=== PATIENT | female | born 1960 | race Caucasian/White ===

== ENCOUNTER → 2016-08-08 | Outpatient (REF) | payer OTHER ==
[2016-08-08 12:24] LABS: ALBUMIN/GLOBULIN RATIO 1.29 (1.00-1.93); ALKALINE PHOSPHATASE 72 U/L (45-117); ALT/SGPT 17 U/L (12-78); ANION GAP 7 MEQ/L (8-16); AST/SGOT 14 U/L (15-37); BILIRUBIN,TOTAL 0.3 MG/DL (0.2-1.0); BLOOD UREA NITROGEN 16 MG/DL (7-18); CARBON DIOXIDE LEVEL 27 MEQ/L (21-32); CHLORIDE LEVEL 111 MEQ/L (98-107); CHOLESTEROL LEVEL 213 MG/DL (<200); CREATININE FOR GFR 0.83 MG/DL (0.55-1.02); GLOMERULAR FILTRATION RATE > 60.0 (>51); GLUCOSE, FASTING 87 MG/DL (70-105); POTASSIUM SERUM 4.4 MEQ/L (3.5-5.1); SODIUM LEVEL 145 MEQ/L (136-145); TOTAL PROTEIN 7.1 GM/DL (6.4-8.2); TRIGLYCERIDES LEVEL 71 MG/DL (<150)
== END ==
LOC: M SFHCCLAY 07:46
PROVIDERS: ATTEND Family Medicine
DX: I10 Essential (primary) hypertension (principal); E78.2 Mixed hyperlipidemia; R03.0 Elevated blood-pressure reading, without diagnosis of hypertension

== ENCOUNTER → 2017-03-04 | Outpatient (CLI) | payer OTHER ==
[2017-03-04 18:38] LABS: ALBUMIN 3.9 GM/DL (3.2-5.2); ALBUMIN/GLOBULIN RATIO 1.08 (1.00-1.93); ALKALINE PHOSPHATASE 76 U/L (45-117); ALT/SGPT 20 U/L (12-78); ANION GAP 10 MEQ/L (8-16); AST/SGOT 15 U/L (15-37); BILIRUBIN,TOTAL 0.3 MG/DL (0.2-1.0); BLOOD UREA NITROGEN 13 MG/DL (7-18); CALCIUM LEVEL 8.6 MG/DL (8.5-10.1); CARBON DIOXIDE LEVEL 26 MEQ/L (21-32); CHLORIDE LEVEL 108 MEQ/L (98-107); CHOLESTEROL LEVEL 235 MG/DL (<200); CREATININE FOR GFR 0.74 MG/DL (0.55-1.02); GLOMERULAR FILTRATION RATE > 60.0 (>51); GLUCOSE, FASTING 89 MG/DL (70-105); POTASSIUM SERUM 4.6 MEQ/L (3.5-5.1); SODIUM LEVEL 144 MEQ/L (136-145); TOTAL PROTEIN 7.5 GM/DL (6.4-8.2); TRIGLYCERIDES LEVEL 84 MG/DL (<150)
== END ==
LOC: M WUC 08:06
PROVIDERS: ATTEND Family Medicine
DX: I10 Essential (primary) hypertension (principal); E78.2 Mixed hyperlipidemia

== ENCOUNTER → 2017-09-22 | Outpatient (REF) | payer OTHER ==
[2017-09-22 12:23] LABS: ALBUMIN 3.9 GM/DL (3.2-5.2); ALBUMIN/GLOBULIN RATIO 1.11 (1.00-1.93); ALKALINE PHOSPHATASE 69 U/L (45-117); ALT/SGPT 20 U/L (12-78); ANION GAP 4 MEQ/L (8-16); AST/SGOT 13 U/L (7-37); BILIRUBIN,TOTAL 0.5 MG/DL (0.2-1.0); BLOOD UREA NITROGEN 13 MG/DL (7-18); CALCIUM LEVEL 9.4 MG/DL (8.5-10.1); CARBON DIOXIDE LEVEL 30 MEQ/L (21-32); CHLORIDE LEVEL 110 MEQ/L (98-107); CHOLESTEROL LEVEL 220 MG/DL (<200); CHOLESTEROL RISK RATIO 3.666 (<5); CREATININE FOR GFR 0.79 MG/DL (0.55-1.30); GLOMERULAR FILTRATION RATE > 60.0 (>51); GLUCOSE, FASTING 91 MG/DL (70-100); HDL CHOLESTEROL 60 MG/DL (>40); LDL CHOLESTEROL 140.8 MG/DL (<100); NON-HDL-C 160 MG/DL; POTASSIUM SERUM 4.4 MEQ/L (3.5-5.1); SODIUM LEVEL 144 MEQ/L (136-145); THYROID STIMULATING HORMONE 0.862 uIU/ML (0.358-3.740); TOTAL PROTEIN 7.4 GM/DL (6.4-8.2); TRIGLYCERIDES LEVEL 96 MG/DL (<150)
== END ==
LOC: M SFHCCLAY 08:33
DX: I10 Essential (primary) hypertension (principal); E78.2 Mixed hyperlipidemia

== ENCOUNTER → 2018-03-26 | Outpatient (REF) | payer OTHER ==
[2018-03-26 12:56] LABS: ALBUMIN 3.8 GM/DL (3.2-5.2); ALBUMIN/GLOBULIN RATIO 1.19 (1.00-1.93); ALKALINE PHOSPHATASE 68 U/L (45-117); ALT/SGPT 16 U/L (12-78); ANION GAP 6 MEQ/L (8-16); AST/SGOT 15 U/L (7-37); BILIRUBIN,TOTAL 0.5 MG/DL (0.2-1.0); BLOOD UREA NITROGEN 13 MG/DL (7-18); CALCIUM LEVEL 9.3 MG/DL (8.5-10.1); CARBON DIOXIDE LEVEL 27 MEQ/L (21-32); CHLORIDE LEVEL 110 MEQ/L (98-107); CHOLESTEROL LEVEL 210 MG/DL (<200); CHOLESTEROL RISK RATIO 3.559 (<5); CREATININE FOR GFR 0.81 MG/DL (0.55-1.30); GLOMERULAR FILTRATION RATE > 60.0 (>51); GLUCOSE, FASTING 79 MG/DL (70-100); HDL CHOLESTEROL 59 MG/DL (>40); LDL CHOLESTEROL 135 MG/DL (<100); NON-HDL-C 151 MG/DL; POTASSIUM SERUM 4.5 MEQ/L (3.5-5.1); SODIUM LEVEL 143 MEQ/L (136-145); TRIGLYCERIDES LEVEL 80 MG/DL (<150)
== END ==
LOC: M SFHCCLAY 08:02
DX: E78.2 Mixed hyperlipidemia (principal)

== ENCOUNTER → 2018-07-23 | Outpatient (CLI) | payer BC ==
--- NOTE | 2018-07-23 14:10 | REPMRS ---
Patient History The patient states she had a clinical breast exam in 08/07 No known family history of cancer. Digital Woman Screen Mammo: July 23, 2018 - Exam #: [id number] Bilateral CC and MLO view(s) were taken. Technologist: Kizzy Gutierrez, Technologist Prior study comparison: October 26, 2015, digital woman screen mammo performed at [facility]. August 07, 2014, digital woman screen mammo performed at [facility]. August 06, 2013, digital woman screen mammo performed at [facility]. FINDINGS: There are scattered fibroglandular densities. There has been no change in the appearance of the mammogram from the prior studies. There is a mild amount of scattered fibroglandular density which is fairly symmetric. There is no interval development of dominant mass, architectural distortion, or clustered microcalcification suggestive of malignancy. 3-D tomosynthesis shows no additional findings. Assessment: BI-RADS/ACR category 1 mammogram. Negative Mammogram. Recommendation Routine screening mammogram of both breasts in 1 year (for women over age 40). This patient's Lifetime Breast Cancer RIsk is estimated at 9.6 %. This mammogram was interpreted with the aid of an FDA-approved computer-aided dectection system. Electronically Signed By: Koby Kothari MD 07/23/18 0213
== END ==
LOC: M WHC 10:50
PROVIDERS: ATTEND Nurse Practitioner Family
DX: Z12.31 Encounter for screening mammogram for malignant neoplasm of breast (principal)

== ENCOUNTER → 2018-07-23 | Outpatient (REF) | payer OTHER ==
[2018-07-26 14:16] LABS: HPV HYBRID CAPTURE II Negative (Negative)
== END ==
LOC: M SFHCWAGY 11:31
PROVIDERS: ATTEND Nurse Practitioner Family
DX: Z12.4 Encounter for screening for malignant neoplasm of cervix (principal)
CPT/HCPCS: 87624; G0123

== ENCOUNTER → 2018-11-08 | Outpatient (CLI) | payer BC, OTHER ==
--- NOTE | 2018-11-08 15:49 | REP ---
Clinical: Lung screening. History of tobacco use. Comparison: None Technique: Axial low-dose noncontrast images from the thoracic inlet to the upper abdomen using lung screening technique. Findings: The lung oviedo are well-aerated. No consolidation, significant nodule or mass lesion is appreciated. No pleural effusion/reaction or pneumothorax. Tracheobronchial tree is patent. Mediastinum demonstrates mild atherosclerotic changes of the coronary arteries without cardiomegaly. Impression: Lung-RADS category I. No nodule or suspicious abnormality. Management recommendations include annual low-dose CT reevaluation. Electronically Signed by Lucien Hatch MD 11/08/2018 03:41 P
== END ==
LOC: M RAD 14:43
PROVIDERS: ATTEND Family Medicine
DX: Z12.2 Encounter for screening for malignant neoplasm of respiratory organs (principal); F17.200 Nicotine dependence, unspecified, uncomplicated

== ENCOUNTER → 2019-04-01 | Outpatient (REF) | payer OTHER ==
[2019-04-01 12:45] LABS: ALBUMIN 3.7 GM/DL (3.2-5.2); ALT/SGPT 15 U/L (12-78); BILIRUBIN,TOTAL 0.4 MG/DL (0.2-1.0); BLOOD UREA NITROGEN 14 MG/DL (7-18); CALCIUM LEVEL 9.2 MG/DL (8.5-10.1); CARBON DIOXIDE LEVEL 27 MEQ/L (21-32); CHLORIDE LEVEL 109 MEQ/L (98-107); CHOLESTEROL LEVEL 195 MG/DL (<200); CHOLESTEROL RISK RATIO 3.679 (<5); CREATININE FOR GFR 0.88 MG/DL (0.55-1.30); GLOMERULAR FILTRATION RATE > 60.0 (>51); GLUCOSE, FASTING 95 MG/DL (70-100); HDL CHOLESTEROL 53 MG/DL (>40); LDL CHOLESTEROL 127 MG/DL (<100); NON-HDL-C 142 MG/DL; POTASSIUM SERUM 4.8 MEQ/L (3.5-5.1); SODIUM LEVEL 141 MEQ/L (136-145); TRIGLYCERIDES LEVEL 75 MG/DL (<150)
== END ==
LOC: M SFHCCLAY 07:56
PROVIDERS: ATTEND Family Medicine
DX: E78.2 Mixed hyperlipidemia (principal)

== ENCOUNTER 2019-11-06 10:08 | Emergency (ER) | payer BC, OTHER ==
[~2019-11-06] VITALS: Ht 177.8 cm; Wt 95.1 kg
[2019-11-06] MEDS ORDERED: LISI-538 PO (10:14)
[2019-11-06] MEDS ORDERED: AMOX500C PO (10:14)
[2019-11-06 11:35] LABS: BASO % 0.2 % (0.0-1.0); EOS % 0.5 % (0.0-3.0); HEMOGLOBIN 14.6 g/dl (12.0-15.5); LYMPH # 2.2 10^3/uL (1.5-5.0); LYMPH % 26.1 % (24.0-44.0); MEAN CORPUSCULAR HEMOGLOBIN 31.3 pg (27.0-33.0); MEAN CORPUSCULAR HGB CONC 33.2 g/dl (32.0-36.5); MEAN CORPUSCULAR VOLUME 94.4 fl (80.0-96.0); MONO # 0.3 10^3/uL (0.0-0.8); MONO % 4.1 % (0.0-5.0); NEUTROPHILS # 5.7 10^3/uL (1.5-8.5); NEUTROPHILS % 68.7 % (36.0-66.0); PLATELET COUNT, AUTOMATED 281 10^3/uL (150-450); RED BLOOD COUNT 4.66 10^6/uL (4.00-5.40); WHITE BLOOD COUNT 8.3 10^3/uL (4.0-10.0)
--- NOTE | 2019-11-06 11:45 | REP ---
LEFT FIRST TOE: Four views of the left 1st toe are performed. I see no acute fracture or dislocation. No osseous lesion is seen. Incidental note is made of moderate inferior calcaneal spurring and mild dorsal navicular spurring. IMPRESSION: No acute fracture or dislocation. Electronically Signed by Lj Burk MD 11/06/2019 04:42 P
[2019-11-06 11:52] LABS: ERYTHROCYTE SEDIMENTATION RATE 9 mm/hr (0-30)
[2019-11-06 11:54] LABS: C REACTIVE PROTEIN QUANTITATIV < 0.30 MG/DL (0.00-0.30); URIC ACID 5.2 MG/DL (2.6-6.0)
[2019-11-06 14:25] VITALS: BP 177/77
--- NOTE | 2019-11-06 14:49 | REP ---
LEFT LOWER EXTREMITY DUPLEX DOPPLER ARTERIAL ULTRASOUND: Real-time ultrasound evaluation and duplex Doppler interrogation of left lower extremity arterial system is performed. Diffuse mild to moderate plaquing is noted. Diffuse triphasic and biphasic waveforms are seen at rest with monophasic waveform in the profunda and tibioperoneal trunk. CANDELARIA is 0.8. Normal flow velocities are present with no duplex Doppler sonographic evidence of hemodynamically significant stenosis. Left Peak Systolic Velocity Common femoral artery 174.0 cm/s Profunda 104.1 cm/s Proximal SFA 147.9 cm/s Mid SFA 87.8 cm/s Distal SFA 84.7 cm/s Popliteal 58.9 cm/s Proximal MARCUS 29.2 cm/s Tibial peroneal trunk 42.5 cm/s Proximal SUPERVISOR QUALITY CONTROL 37.0 cm/s Distal SUPERVISOR QUALITY CONTROL 42.3 cm/s Distal MARCUS 26.4 cm/s Electronically Signed by Lj Burk MD 11/06/2019 04:48 P
[2019-11-29] MEDS ORDERED: ASPI-255 PO (14:05)
== END 2019-11-06 14:29 | disposition home or self-care (01) ==
LOC: M ED 10:08
DX: R23.8 Other skin changes (principal); F17.210 Nicotine dependence, cigarettes, uncomplicated; M61.472 Other calcification of muscle, left ankle and foot; I10 Essential (primary) hypertension; Z79.899 Other long term (current) drug therapy

== ENCOUNTER → 2019-12-02 | Outpatient (CLI) | payer BC, OTHER ==
[~2019-12-02] MED LIST: ACETAMINOPHEN TAB 650MG DOSE (2X325MG) PO PRN; AMOX500C PO; ASPI-255 PO; ASPI81TA26 PO; CLOPIDOGREL 75 MG TAB As Ordered ONE; CLOPIDOGREL 75 MG TAB PO ONE; ISOVUE-300 61% 50ML VIAL As Ordered ONE; LIDOCAINE 1% MDV 20ML VIAL As Ordered ONE; LISI-538 PO; MIDAZOLAM INJ 2MG/2ML VIAL (J2250 PER 1MG) As Ordered ONE; NITROGLYCERIN IN D5W 25MG/250ML (100MCG/ML) As Ordered ONE; NS 1,000 ML IV SCH; PLAV1TAB2 PO; fentaNYL 100 MCG/2 ML INJECTION (J3010) As Ordered ONE
[2019-12-02 07:11] LABS: HEMATOCRIT 42.2 % (36.0-47.0); HEMOGLOBIN 14.4 g/dl (12.0-15.5); MEAN CORPUSCULAR HEMOGLOBIN 32.5 pg (27.0-33.0); MEAN CORPUSCULAR HGB CONC 34.1 g/dl (32.0-36.5); MEAN CORPUSCULAR VOLUME 95.3 fl (80.0-96.0); PLATELET COUNT, AUTOMATED 299 10^3/uL (150-450); RED BLOOD COUNT 4.43 10^6/uL (4.00-5.40); WHITE BLOOD COUNT 7.8 10^3/uL (4.0-10.0)
[2019-12-02 07:47] LABS: BLOOD UREA NITROGEN 14 MG/DL (7-18); CALCIUM LEVEL 9.2 MG/DL (8.5-10.1); CARBON DIOXIDE LEVEL 26 MEQ/L (21-32); CHLORIDE LEVEL 108 MEQ/L (98-107); CREATININE FOR GFR 0.77 MG/DL (0.55-1.30); GLOMERULAR FILTRATION RATE > 60.0 (>51); GLUCOSE, FASTING 80 MG/DL (70-100); POTASSIUM SERUM 7.4 MEQ/L (3.5-5.1); SODIUM LEVEL 136 MEQ/L (136-145)
--- NOTE | 2019-12-02 09:47 | ROOPDOC ---
[facility] Report Of Operation Report of Operation DATE OF PROCEDURE: 12/02/19 PREPROCEDURE DIAGNOSES: Atherosclerosis of the quinault vessels with short distance claudication left lower extremity POSTPROCEDURE DIAGNOSES: Same PROCEDURE: 1. Ultrasound-guided access right common femoral artery 2. Aortoiliofemoral arteriogram 3. Selection left common iliac artery and oblique images of the iliac arteries 4. Selection left common femoral artery and SFA and left lower extremity runoff 5. Selection left popliteal artery and left lower extremity runoff 6. 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 Cross chronic total occlusion peroneal artery and selection distal peroneal artery and arteriogram 8. Angioplasty left popliteal artery with 4 x 100 Elmwood balloon, stent with 4.5 x 20 supera stent and post-dilation with 4 x 100 Elmwood balloon 9. Angioplasty left anterior tibial artery with 2.5 x 220 Edison balloon 10. Angioplasty left peroneal artery with 2.5 x 220 Edison balloon 11. Balloon expandable stent placement left common iliac artery 9 x 37 express stent 12. Completion arteriograms 13. Mynx closure right common femoral artery SURGEON: Douglas Ruiz MD ANESTHESIA: Local anesthesia 12 mL lidocaine. Moderate intravenous conscious sedation was supervised by Dr. Ruiz. The patient was independently monitored by registered nurse assigned to the Department of radiology using automated blood pressure, EKG, and pulse oximetry. The detailed sedation record is permanently stored in the hospital information system. The following is a ahslyn ef sedation record: Start time 07:33, stop time on 9:11, Versed 2.5 mg IV, fentanyl 125 g IV, heparin 5000 units IV, nitroglycerin 300 g given through sheath at left popliteal artery. INDICATION FOR PROCEDURE: This is a very pleasant 59-year-old patient with atherosclerosis and quinault vessels and short distance claudication and history of tobacco abuse. The patient had initially quit, now she has started smoking again. This is unfortunate. It is making her symptoms worse. We discussed the risks benefits and alternatives to a left lower extremity arteriogram potential intervention. She is agreeable to proceed. Informed consent was obtained. INTERPRETATION: 1. The right iliac system including the common iliac, hypogastric, external iliac artery are widely patent. The origin of the left common iliac artery has an 80-90% focal stenosis, and then oblique views revealed widely patent flow through the distal common iliac artery, hypogastric, and external iliac artery. 2. The left common femoral artery, profunda, and SFA are widely patent. The popliteal artery has a focal 60% stenosis in the proximal aspect, but then is widely patent in the mid and distal aspect. The origin of the 3 tibial vessels are widely patent. There is good flow into the proximal anterior tibial, peroneal, and posterior tibial artery. However, at the mid calf, there is sluggish minimal flow through the peroneal artery, and the anterior tibial artery occludes in the upper calf. The posterior tibial arteries the main runoff the foot and is a large vessel with good flow through the plantar circulation. 3. After angioplasty of the left popliteal artery lesion, there was still greater than 40% residual stenosis, and we therefore felt a stent focally in this area would be helpful, and after placement of a 4.5 x 20 self-expanding stent and post-dilating, there was widely patent flow through the popliteal artery with no residual stenosis, no dissection, no embolization. 4. After crossing the chronic total occlusion in the left peroneal artery and confirming we were in the true lumen with a quick contrast injection at the foot, we angioplasty the length of the vessel for multiple three-minute angioplasties, but unfortunately there was still sluggish flow through the calf and little flow noted at the ankle. However, quick contrast injection distally shows that we did successfully open the vessel, but the microcirculation outflow was minimal. Administration of 100 g of nitroglycerin through the sheath at the popliteal artery did not significantly improve this. 5. After crossing the chronic total occlusion in the left anterior tibial artery and confirming we were in the true lumen with a quick contrast injection at the dorsal pedis artery, we angioplasty the length of the vessel for three-minute inflations, multiple times, but there was still sluggish flow through the upper calf with little flow noted from the mid calf to the ankle. Distal arteriogram showed we did in fact open the vessel, but the microcirculation outflow was minimal. Administration of 200 g of nitroglycerin through the sheath at the popliteal artery did not significantly improve this. 6. After balloon expandable stent placement in the common iliac artery, there was widely patent flow through the vessel with no dissection or residual stenosis noted. Quick contrast injection's at the femoral bifurcation and the popliteal bifurcation showed no embolic event had occurred. REPORT OF SEPARATION. The patient was brought to the angiographic suite in stable condition. Her bilateral groins were prepped and draped in a sterile fashion. A timeout was performed. Sedation was administered without complication. Local anesthesia was a mental health program manager to the skin and subcutaneous tissue over the right common femoral artery. A microneedle was used to access the artery under ultrasound guidance. A wire was passed through this access and a fluoroscopic guidance. The needle was removed and a 4 Belgian glide sheath was placed and flushed with saline. Through this sheath, we advanced a stiff Glidewire and infusion catheter into the distal aorta. Aortoiliofemoral arteriograms were performed. Please see interpretation above. Next, it went up and over the bifurcation with the Glidewire and the catheter. We selected the left common femoral artery and SFA. Please see interpretation of arteriograms above. We then advanced the Glidewire under fluoroscopic guidance into the distal popliteal artery. We exchanged that sheath over the wire for a 6 Belgian x 90 centimeter sheath. The sheath was flushed with saline. We then performed and angioplasty across the popliteal artery with a 4 x 100 Elmwood balloon for three-minute inflations. Following this, there was still significant stenosis, so we exchanged for an O18 Glidewire advantage and and we placed a 4.5 x 20 supera stent. This was postdilated with a 4 x 100 Elmwood balloon. Following this, there was widely patent flow through the vessel. Please see interpretation above. We navigated the 018 Glidewire into the peroneal artery and were able to utilize this to cross distally into the vessel. We pasty 2.5 x 220 Edison balloon over the wire across the ankle into the foot. We then formed a quick contrast injection through the balloon at the distal foot to confirm we were in the true lumen. Once this was confirmed, we did a three-minute inflations on the balloon along the length of the vessel. Unfortunately, repeat arteriogram still showed minimal flow across the ankle, but proximally there was improved flow. A second three-minute inflation was performed, but no significant difference was noted, even after administering nitroglycerin. We then selected the left anterior tibial artery and were able to cross distally into the dorsal pedis artery and into the foot. A 2.5 x 220 Edison balloon was advanced over the wire and we then performed a quick contrast injection in the dorsal pedis artery through the balloon to confirm we were in the true lumen. Once this was confirme d, we did three-minute angioplasties across this vessel is well, but unfortunately, we did not note a significant improvement. We then reinflated the balloon for additional three-minute angioplasties distally and proximally. Again, we noticed minimal improvement, despite administering 200 additional micrograms of nitroglycerin into the tibial vessels. Throughout the procedure we would note intermittent significant spasm in the posterior tibial artery, which is been patent throughout, and I think spasm was a big part of the reason we did not note a significant improvement with angioplasty. I suspect this is partially due to the fact that the patient smoked right before the procedure, and is experiencing nicotine vasospasm, it also may have chronic vasospasm from a history of tobacco abuse. Nevertheless, I did not feel further angioplasty was going to benefit the patient is a did not note any waist on the balloon or signs of residual stenosis, an additional angioplasty may make the spasms worse. Therefore, additional heparinized saline was flushed, we confirmed that we still have good flow to the distal foot through the posterior tibial artery, and then we turned our attention to the iliac vessel. We exchanged the sheath over an O35 wire for a 7 x 45 destination sheath, and we left the tip of the sheath at the origin of the left common iliac artery. Quick oblique arteriogram gave a clear picture of the iliac system on the left, and a 9 x 37 express stent was selected and deployed from the proximal common iliac artery across the area of severe stenosis. Following stent placement, completion arteriogram showed widely patent flow through the iliac system on the left. We then checked the femoral bifurcation in the popliteal bifurcation to make sure we did not have distal emboli after stenting. Both had rapid flow. This concluded the procedure. We exchanged the sheath over the wire for a short 7 Belgian sheath and flushed the sheath with saline. A Mynx closure device was deployed in the right common femoral artery, initially with good hemostasis. However, upon removal of the last piece of the deployment device, the closure agent was adherent to the plastic. I do not believe it was the entire closure agent, but it was a good amount. I was able to carefully advanced this through the tract with a mosquito clamp near to the femoral access site, but not all the way down to the artery as I did not want to blindly advance into the wrong area. An additional 5 minutes of pressure was held to compensate for only partial Mynx successful deployment. Good hemostasis was noted after 15 minutes of pressure and sterile dressings were applied. The patient was taken to recovery in stable condition. We will keep her for an extra hour of bedrest following the procedure. She tolerated the procedure and the sedation well. ESTIMATED BLOOD LOSS: Approximately 5 mL. COMPLICATIONS: None. PLAN: We will see the patient back in a week to check her right groin access site. No strenuous exercise or lifting greater than 5 pounds for 48 hours. Extensive discussion with patient about smoking cessation for limb preservation. I discussed this with her as well. I also discussed with her that it'll be important for the patient to ambulate as much as possible to improve her collateral circulation, which over time will diminish her symptoms of claudication if she quit smoking. We will start the patient on Plavix due to stent placement. She will need 60 days of uninterrupted Plavix after bare-metal stent placement. She can resume her home diet medications. We appreciate the opportunity to participate in the care of this patient. DOUGLAS RUIZ MD Dec 02, 2019 09:47
[2019-12-02 14:30] VITALS: BP 120/60
== END ==
LOC: M IRPRO 06:30
PROVIDERS: ATTEND Surgery Vascular Surgery
DX: I70.212 Atherosclerosis of native arteries of extremities with intermittent claudication, left leg (principal); I70.92 Chronic total occlusion of artery of the extremities
CPT/HCPCS: 37221; 37226; 37228; 37232; 75710; 80048; 85027; 99152; 99153; C1725; C1729; C1760; C1769; C1876; C1887; C1894; J1644; J2250; J3010; Q9967

== ENCOUNTER → 2019-12-11 | Outpatient (REF) | payer OTHER ==
[~2019-12-11] MED LIST changes: -ACETAMINOPHEN TAB 650MG DOSE (2X325MG) PO PRN; -CLOPIDOGREL 75 MG TAB As Ordered ONE; -CLOPIDOGREL 75 MG TAB PO ONE; -ISOVUE-300 61% 50ML VIAL As Ordered ONE; -LIDOCAINE 1% MDV 20ML VIAL As Ordered ONE; -MIDAZOLAM INJ 2MG/2ML VIAL (J2250 PER 1MG) As Ordered ONE; -NITROGLYCERIN IN D5W 25MG/250ML (100MCG/ML) As Ordered ONE; -NS 1,000 ML IV SCH; -fentaNYL 100 MCG/2 ML INJECTION (J3010) As Ordered ONE
[2019-12-11 15:13] LABS: ALBUMIN 3.5 GM/DL (3.2-5.2); ALT/SGPT 15 U/L (12-78); BILIRUBIN,TOTAL 0.4 MG/DL (0.2-1.0); BLOOD UREA NITROGEN 14 MG/DL (7-18); CALCIUM LEVEL 9.2 MG/DL (8.5-10.1); CARBON DIOXIDE LEVEL 29 MEQ/L (21-32); CHLORIDE LEVEL 109 MEQ/L (98-107); CHOLESTEROL LEVEL 204 MG/DL (<200); CHOLESTEROL RISK RATIO 3.642 (<5); CREATININE FOR GFR 0.84 MG/DL (0.55-1.30); GLOMERULAR FILTRATION RATE > 60.0 (>51); GLUCOSE, FASTING 104 MG/DL (70-100); HDL CHOLESTEROL 56 MG/DL (>40); LDL CHOLESTEROL 136 MG/DL (<100); NON-HDL-C 148 MG/DL; POTASSIUM SERUM 4.7 MEQ/L (3.5-5.1); SODIUM LEVEL 144 MEQ/L (136-145); TRIGLYCERIDES LEVEL 60 MG/DL (<150)
[2019-12-11 15:22] LABS: HEMATOCRIT 41.2 % (36.0-47.0); HEMOGLOBIN 13.4 g/dl (12.0-15.5); MEAN CORPUSCULAR HEMOGLOBIN 31.6 pg (27.0-33.0); MEAN CORPUSCULAR HGB CONC 32.5 g/dl (32.0-36.5); MEAN CORPUSCULAR VOLUME 97.2 fl (80.0-96.0); PLATELET COUNT, AUTOMATED 311 10^3/uL (150-450); RED BLOOD COUNT 4.24 10^6/uL (4.00-5.40); WHITE BLOOD COUNT 6.3 10^3/uL (4.0-10.0)
== END ==
LOC: M SFHCCLAY 07:34
PROVIDERS: ATTEND Family Medicine
DX: I10 Essential (primary) hypertension (principal); E78.2 Mixed hyperlipidemia

== ENCOUNTER → 2019-12-16 | Outpatient (CLI) | payer BC, OTHER ==
--- NOTE | 2019-12-16 09:13 | REP ---
Clinical: Venous insufficiency . Technique: Burk scale and color Doppler evaluation of the bilateral lower extremities using linear high frequency transducer including evaluation for reflux. Findings: Ultrasound examination of the bilateral lower extremity deep venous structures from the common femoral vein to the popliteal vein demonstrates normal compressibility flow and wave patterns in response to respiration and augmentation. There is no evidence for deep venous thrombosis. Right lower extremity demonstrates reflux through the common femoral vein and superficial femoral vein in Trendelenburg position as well as reflux through the mid greater saphenous vein measuring 4.3 mm diameter with reflux duration 4.2 seconds and distal greater saphenous vein measuring 4.4 mm diameter with reflux duration 3.8 seconds. Left lower extremity demonstrates reflux through the common femoral vein and through the proximal greater saphenous vein measuring 4.3 mm diameter with reflux duration 2.1 seconds. Impression: 1. No evidence for deep venous thrombosis. 2. Minimal reflux as described above. Impression: No evidence for deep venous thrombosis. Electronically Signed by Lucien Hatch MD 12/16/2019 09:05 A
== END ==
LOC: M RAD 07:31
PROVIDERS: ATTEND Physician Assistant
DX: I87.2 Venous insufficiency (chronic) (peripheral) (principal)

== ENCOUNTER → 2020-01-28 | Outpatient (CLI) | payer BC, OTHER ==
[~2020-01-28] MED LIST changes: +IBUP-1114 PO; +KEFL500C17 PO; +PYRI1TAB5 PO; +ROSU10TA6 PO
--- NOTE | 2020-03-12 08:13 | REP ---
BILATERAL LOWER EXTREMITY DUPLEX DOPPLER ARTERIAL ULTRASOUND HISTORY: Claudication. TECHNIQUE: Real-time ultrasound evaluation and duplex Doppler interrogation of bilateral lower extremity arterial systems is performed. FINDINGS: There is a left common iliac artery stent. Reportedly, there is also a stent in the left popliteal artery. Velocity in the proximal left common iliac artery is 137.2 cm/s and distally 287.9 cm/s. Diffuse biphasic and triphasic waveforms are seen bilaterally. CANDELARIA is 1.2 bilaterally. Scattered mild plaque is seen throughout the right lower extremity arterial system with mild stenosis of the right posterior tibial artery both proximally and distally. The left lower extremity arterial system demonstrates [id number] scattered plaque. Both stents are patent. VELOCITY CHART PSV RIGHT (cm/s) PSV LEFT (cm/s) Femoral artery 269.9 271.9 Profunda 305.7 274.8 Proximal SFA 211.7 219.8 Mid-SFA 160.1 159.5 Distal SFA 168.4 183.9 Popliteal 85 155.3 Proximal MARCUS 56.8 87.3 Tibioperoneal trunk 80.2 81.0 Proximal TOWER HOIST OPERATOR 69.8 91.0 Distal TOWER HOIST OPERATOR 113.4 95.2 Distal MARCUS 65.1 61.5 MTDD
== END ==
LOC: M RAD 10:00
PROVIDERS: ATTEND Physician Assistant
DX: I70.213 Atherosclerosis of native arteries of extremities with intermittent claudication, bilateral legs (principal)

== ENCOUNTER → 2020-03-09 | Outpatient (REF) | payer BC ==
[2020-03-09 17:35] LABS: ALBUMIN 3.9 GM/DL (3.2-5.2); ALT/SGPT 18 U/L (12-78); BILIRUBIN,TOTAL 0.5 MG/DL (0.2-1.0); BLOOD UREA NITROGEN 11 MG/DL (7-18); CARBON DIOXIDE LEVEL 25 MEQ/L (21-32); CHLORIDE LEVEL 110 MEQ/L (98-107); CHOLESTEROL LEVEL 150 MG/DL (<200); CHOLESTEROL RISK RATIO 2.205 (<5); CREATININE FOR GFR 0.81 MG/DL (0.55-1.30); GLOMERULAR FILTRATION RATE > 60.0 (>51); GLUCOSE, FASTING 85 MG/DL (70-100); HDL CHOLESTEROL 68 MG/DL (>40); LDL CHOLESTEROL 70 MG/DL (<100); NON-HDL-C 82 MG/DL; POTASSIUM SERUM 5.5 MEQ/L (3.5-5.1); SODIUM LEVEL 140 MEQ/L (136-145); TOTAL PROTEIN 7.2 GM/DL (6.4-8.2); TRIGLYCERIDES LEVEL 58 MG/DL (<150)
[2020-03-09 17:41] LABS: HEMOGLOBIN A1c 5.6 %
[2020-03-09 17:56] LABS: BASO % 0.2 % (0.0-1.0); EOS % 0.5 % (0.0-3.0); HEMATOCRIT 40.2 % (36.0-47.0); HEMOGLOBIN 13.4 g/dl (12.0-15.5); LYMPH # 2.2 10^3/uL (1.5-5.0); LYMPH % 27.2 % (24.0-44.0); MEAN CORPUSCULAR HEMOGLOBIN 32.2 pg (27.0-33.0); MEAN CORPUSCULAR HGB CONC 33.3 g/dl (32.0-36.5); MEAN CORPUSCULAR VOLUME 96.6 fl (80.0-96.0); MONO # 0.5 10^3/uL (0.0-0.8); MONO % 5.7 % (0.0-5.0); NEUTROPHILS # 5.3 10^3/uL (1.5-8.5); NEUTROPHILS % 65.8 % (36.0-66.0); PLATELET COUNT, AUTOMATED 285 10^3/uL (150-450); RED BLOOD COUNT 4.16 10^6/uL (4.00-5.40); WHITE BLOOD COUNT 8.1 10^3/uL (4.0-10.0)
== END ==
LOC: M SFHCCLAY 16:08
PROVIDERS: ATTEND Family Medicine
DX: E78.2 Mixed hyperlipidemia (principal); R73.01 Impaired fasting glucose

== ENCOUNTER → 2020-04-20 | Outpatient (CLI) | payer BC, OTHER ==
[~2020-04-20] MED LIST changes: -IBUP-1114 PO; -KEFL500C17 PO; -PYRI1TAB5 PO; -ROSU10TA6 PO
--- NOTE | 2020-04-20 15:20 | REP ---
INDICATION: ENCOUNTER FOR SCREENING FOR MALIGNANT NEOPLASM OF LUNG. COMPARISON: 11/08/2018 TECHNIQUE: Axial noncontrast images from the thoracic inlet to the upper abdomen using low-dose lung screening technique (LDCT). As per the protocol only lung window images were sent to the read station for interpretation. FINDINGS: The lung oviedo are stable. No new abnormal nodules, masses, or opacities have developed. There are no pleural or pericardial effusions. Grossly, the imaged upper abdomen and imaged osseous structures are unchanged. Grossly, the mediastinum and pulmonary beto are unchanged. IMPRESSION: Stable exam. Lung rads category 1. <Electronically signed by Austin Goldstein > 04/20/20 0894
== END ==
LOC: M RAD 14:14
PROVIDERS: ATTEND Family Medicine
DX: F17.210 Nicotine dependence, cigarettes, uncomplicated (principal)

== ENCOUNTER → 2020-04-20 | Outpatient (CLI) | payer BC, OTHER ==
--- NOTE | 2020-04-21 09:02 | REP ---
INDICATION: CLAUDICATION CT 1ST THEN WILL WAIT AT FILE RM FOR IS COMPARISON: 01/28/2020. TECHNIQUE: Real time burk scale and Duplex Doppler evaluation of the bilateral lower extremity arterial vasculature using linear high frequency transducer. FINDINGS: Burk scale and duplex doppler images demonstrate mild to moderate scattered atherosclerotic plaquing throughout the bilateral lower extremity arterial systems. There is stenosis of the proximal right profunda artery. Diffuse triphasic and biphasic waveforms are seen throughout the right lower extremity. On the left a stent in the popliteal artery is occluded with reconstitution of the tibioperoneal trunk. Triphasic waveforms are seen in the left common femoral artery and profunda with monophasic waveforms distal to that. CANDELARIA right is 1.0 and left 0.6. Peak systolic velocities (cm/sec) Common femoral artery: Right 262; Left 238 Profunda femoris: Right 323; Left 160 SFA (proximal): Right 164; Left 140 SFA (mid): Right 176; Left 131 SFA (distal): Right 138; Left 176 Popliteal artery: Right 107; Left occluded MARCUS (prox.): Right 24; Left 29 Tibioperoneal trunk: Right 71; Left 12 BUILDING CONSTRUCTION ESTIMATOR (prox.): Right 66; Left 19 BUILDING CONSTRUCTION ESTIMATOR (distal): Right 75; Left 40 MARCUS (distal): Right 32; Left 45 IMPRESSION: Atheromatous changes. Stenosis proximal right profunda artery. Occluded left popliteal artery stent reconstitution of the left tibioperoneal trunk. <Electronically signed by Lj Burk > 04/21/20 0826
== END ==
LOC: M RAD 14:18
PROVIDERS: ATTEND Physician Assistant
DX: I70.203 Unspecified atherosclerosis of native arteries of extremities, bilateral legs (principal)

== ENCOUNTER 2020-04-29 17:50 | Emergency (ER) | payer BC, OTHER ==
[~2020-04-29] VITALS: Ht 175.3 cm; Wt 96.8 kg
[2020-04-29] MEDS ORDERED: IBUP-1114 PO (18:01)
[2020-04-29] MEDS ORDERED: ROSU10TA6 PO (18:01)
[2020-04-29] MEDS ORDERED: ONDANSETRON 4MG/2ML VIAL IV ONE (19:15)
[2020-04-29] MEDS ORDERED: MORPHINE 2 MG/ML 1ML VIAL (J2270) IV ONE (19:15)
[2020-04-29] MEDS ORDERED: NS 1,000 ML IV ONE (19:30)
[2020-04-29 20:10] LABS: BASO % 0.2 % (0.0-1.0); EOS % 0.1 % (0.0-3.0); HEMATOCRIT 42.4 % (36.0-47.0); HEMOGLOBIN 14.5 g/dl (12.0-15.5); LYMPH # 1.4 10^3/uL (1.5-5.0); LYMPH % 12.2 % (24.0-44.0); MEAN CORPUSCULAR HEMOGLOBIN 31.1 pg (27.0-33.0); MEAN CORPUSCULAR HGB CONC 34.2 g/dl (32.0-36.5); MONO # 0.5 10^3/uL (0.0-0.8); NEUTROPHILS # 9.7 10^3/uL (1.5-8.5); NEUTROPHILS % 83.3 % (36.0-66.0); PLATELET COUNT, AUTOMATED 244 10^3/uL (150-450); RED BLOOD COUNT 4.66 10^6/uL (4.00-5.40); WHITE BLOOD COUNT 11.7 10^3/uL (4.0-10.0)
[2020-04-29] MEDS ORDERED: ISOVUE-370 76% 100ML VIAL As Ordered ONE (20:15)
[2020-04-29 20:21] LABS: PROTHROMBIN TIME 13.4 SECONDS (12.5-14.3)
--- NOTE | 2020-04-29 20:24 | REPVR ---
PROCEDURE INFORMATION: Exam: XR Chest, 2 Views Exam date and time: 04/29/2020 6:58 PM Age: 59 years old Clinical indication: Other: Abdominal pain TECHNIQUE: Imaging protocol: XR of the chest Views: 2 views. COMPARISON: LOW DOSE LUNG SCREENING CT 04/20/2020 2:40 PM FINDINGS: Lungs: Unremarkable. No consolidation. Pleural space: Unremarkable. No pleural effusion. No pneumothorax. Heart/Mediastinum: Unremarkable. No cardiomegaly. Bones/joints: Mild degenerative spondylosis of the thoracic spine. IMPRESSION: No acute findings. Electronically signed by: Nathan Tirado On 04/29/2020 20:24:24 PM
[2020-04-29 20:42] LABS: ALBUMIN 4.2 GM/DL (3.2-5.2); ALT/SGPT 15 U/L (12-78); AMYLASE 44 U/L (25-115); BILIRUBIN,DIRECT 0.2 MG/DL (0.0-0.2); BILIRUBIN,TOTAL 0.6 MG/DL (0.2-1.0); CK-MB VALUE MASS 1.1 NG/ML (<3.6); CPK CREATINE PHOSPHOKINASE 76 U/L (26-192); LIPASE 145 U/L (73-393); MB/CK RELATIVE INDEX 1.45 (< OR =4); TOTAL PROTEIN 7.1 GM/DL (6.4-8.2); TROPONIN I < 0.02 NG/ML (< 0.10)
--- NOTE | 2020-04-29 21:20 | REPVR ---
PROCEDURE INFORMATION: Exam: CT Angiography Chest With Contrast Exam date and time: 04/29/2020 8:20 PM Age: 59 years old Clinical indication: Other: Palp; Additional info: Palpitations, pad TECHNIQUE: Imaging protocol: Computed tomographic angiography of the chest with intravenous contrast. 3D rendering (Not supervised by radiologist): MIP and/or 3D reconstructed images were created by the technologist. Radiation optimization: All CT scans at this facility use at least one of these dose optimization techniques: automated exposure control; mA and/or kV adjustment per patient size (includes targeted exams where dose is matched to clinical indication); or iterative reconstruction. Contrast material: ISOVUE 370; Contrast volume: 100 ml; Contrast route: INTRAVENOUS (IV); COMPARISON: CR Chest, 2 view PA, Lat 04/29/2020 6:09 PM FINDINGS: Pulmonary arteries: The main pulmonary artery measures 28 mm. No pulmonary embolism is identified. Aorta: The ascending thoracic aorta measures 27 mm. Lungs: The minimal dependent atelectasis. Pleural space: Unremarkable. No pneumothorax. No pleural effusion. Heart: Unremarkable. No cardiomegaly. No pericardial effusion. Lymph nodes: Unremarkable. No enlarged lymph nodes. Liver: The liver attenuation is 63 Hounsfield units and the spleen is 102 Hounsfield units. Bones/joints: Unremarkable. No acute fracture. Soft tissues: Unremarkable. IMPRESSION: 1. Mild fatty infiltration of the liver. 2. Otherwise negative CTA chest. No pulmonary embolism is identified. Electronically signed by: Ace Edwards On 04/29/2020 21:20:19 PM
--- NOTE | 2020-04-29 21:32 | REPVR ---
PROCEDURE INFORMATION: Exam: CTA Angiogram of the Abdominal Aorta and Bilateral Lower Extremities (Run-off) With IV Contrast Exam date and time: 04/29/2020 8:20 PM Age: 59 years old Clinical indication: Pain; Other: Groin; Additional info: Right groin pain, h/o pad S/P stent placements TECHNIQUE: Imaging protocol: CT angiogram of the abdominal aorta, pelvis and bilateral lower extremities with IV iodinated contrast. 3D rendering (Not supervised by radiologist): MIP and/or 3D reconstructed images were created by the technologist. Radiation optimization: All CT scans at this facility use at least one of these dose optimization techniques: automated exposure control; mA and/or kV adjustment per patient size (includes targeted exams where dose is matched to clinical indication); or iterative reconstruction. Contrast material: ISOVUE 370; Contrast volume: 100 ml; Contrast route: INTRAVENOUS (IV); COMPARISON: US BILAT LOWER EXTREM ARTERIAL 04/20/2020 3:37 PM FINDINGS: Aorta: There is minimal atherosclerotic calcification of the abdominal aorta. No abdominal aortic aneurysm or dissection is seen. 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 The celiac branches are patent. The SMA and branches appear normal. The STACEY is patent. Renal arteries: There are 2 small patent right renal arteries and a single patent left renal artery. Right iliac arteries: Atherosclerotic plaque is noted in the right iliac arteries with stenosis of 30% or less in the common iliac artery. Right femoral/popliteal arteries: The right common femoral artery is adequately patent. The right profunda artery and branches appear normal. The right superficial femoral artery is adequately patent. The right popliteal artery is adequately patent. Right infrapopliteal arteries: In the right calf, the anterior tibial artery, posterior tibial artery and peroneal artery are patent proximally. The anterior tibial artery tapers rapidly with probable multifocal stenoses and fades are occludes by the distal calf. The peroneal artery tapers to the ankle and is noted to extend anteriorly. The posterior tibial artery is the dominant vessel into the foot. Left iliac arteries: There is a stent in the left common iliac artery which is patent. The remaining left iliac arteries are adequately patent. Left femoral/popliteal arteries: The left common femoral artery demonstrates plaque with stenosis of 30-50%. The left profunda artery and branches appear normal. The left superficial femoral artery is relatively spine small but patent. The left popliteal artery is patent. There is a stent in the distal left popliteal artery which appears to be patent. Left infrapopliteal arteries: In the left calf, the anterior tibial, posterior tibial and peroneal arteries are patent proximally. The anterior tibial artery becomes thread-like and not visualized by the distal calf. The peroneal artery tapers to the distal calf and fades. The posterior tibial artery is small but is the dominant vessel into the foot. Liver: The liver attenuation is 66 Hounsfield units and the spleen is 101 Hounsfield units. Gallbladder and bile ducts: Unremarkable. No calcified stones. No ductal dilation. Pancreas: Unremarkable. No mass. No ductal dilation. Spleen: Normal. No splenomegaly. Adrenals: Normal. No mass. Kidneys and ureters: Normal. No mass. Stomach and bowel: Unremarkable. No obstruction. No mucosal thickening. Appendix: A normal appendix is seen. Bladder: Unremarkable. No mass. Reproductive: Unremarkable as visualized. Intraperitoneal space: Unremarkable. No free air. No significant fluid collection. Lymph nodes: No lymphadenopathy. Bones/joints: No acute fracture. No dislocation. Soft tissues: Unremarkable. IMPRESSION: 1. Fatty infiltration of the liver. 2. Small-vessel disease in the right calf with a small tapering anterior tibial artery which is not seen by the distal calf. The posterior tibial artery is the dominant and only vessel extending into the foot. 3. Patent stents in the left common iliac artery and left popliteal artery. 4. Plaque in the left common femoral artery with estimated 30-50% stenosis. 5. Small-vessel disease in the left calf with small vasculature. The anterior tibial becomes thread-like and not seen beyond the distal calf. The posterior tibial artery is small but is the dominant and only vessel extending into the foot. 6. 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 Electronically signed by: Ace Edwards On 04/29/2020 21:32:00 PM
[2020-04-29] MEDS ORDERED: PYRI1TAB5 PO (21:51)
[2020-04-29] MEDS ORDERED: KEFL500C17 PO (21:51)
[2020-04-29] MEDS ORDERED: CEPHALEXIN 500 MG CAP PO ONE (22:00)
[2020-04-29] MEDS ORDERED: PHENAZOPYRIDINE 100 MG TAB PO ONE (22:00)
[2020-04-29] MEDS ORDERED: NORCO, ANEXSIA 5/325MG TABLET (HYDROcodone/ACETAMINOPHEN) PO ONE (22:15)
[2020-04-29 23:40] VITALS: BP 156/76
--- NOTE | 2020-04-30 18:56 | ECGEPIP ---
[facility] - ED Test Date: 2020-04-29 Pat Name: HEENA CABEZAS Department: Room: - Gender: Female Health Care Aide: : 1960 Requested By: HEIDI Stout PA-C Order Number: [id number] Reading MD: Emelia Gibbs Measurements Intervals [place] Rate: 64 P: 78 VA: 130 QRS: 67 QRSD: 86 T: 66 QT: 397 QTc: 410 Interpretive Statements SINUS RHYTHM NO PRIOR Electronically Signed on 04-30-2020 18:55:50 EST by Emelia Gibbs
--- NOTE | 2020-05-04 10:25 | ED PDOC ---
Post-Departure Follow-Up cta abdominal arteries faxed to dr barry for fu Akila Ross MD May 04, 2020 10:25
== END 2020-04-29 23:41 | disposition home or self-care (01) ==
LOC: M ED 17:50
DX: N39.0 Urinary tract infection, site not specified (principal); I70.212 Atherosclerosis of native arteries of extremities with intermittent claudication, left leg; K76.0 Fatty (change of) liver, not elsewhere classified; E78.5 Hyperlipidemia, unspecified; F17.200 Nicotine dependence, unspecified, uncomplicated; Z95.828 Presence of other vascular implants and grafts
CPT/HCPCS: 71046; 71275; 75635; 80047; 80076; 81001; 82150; 82550; 82553; 83605; 83690; 84484; 85025; 85610; 85730; 87088; 87186; 93005; 96361; 96374; 96375; 99284; J2270; J2405; Q9967

== ENCOUNTER → 2020-08-21 | Outpatient (CLI) | payer BC, OTHER ==
[~2020-08-21] MED LIST changes: +IBUP-1114 PO; +KEFL500C17 PO; -LISI-538 PO; +LISI20TA33 PO; +PYRI1TAB5 PO; +ROSU10TA6 PO
--- NOTE | 2020-08-21 15:06 | REP ---
INDICATION: OCCLUSION/STENOSIS LUIS CAROTID ARTERIES COMPARISON: None. TECHNIQUE: Burk scale and color Doppler evaluation using linear high frequency transducer Findings: FINDINGS: Two-dimensional burk scale and color images demonstrate moderate mixed atheromatous plaquing and mild stenosis to the right external carotid artery.. Color Doppler interrogation demonstrates normal arterial wave patterns with mild scattered spectral broadening. Normal flow direction is appreciated in the bilateral vertebral arteries. ICA peak systolic velocity: Right 118 cm/s; Left 122 cm/s ICA diastolic velocity: Right 32 cm/s; Left 14 cm/s ECA peak systolic velocity: Right 185 cm/s; Left 149 cm/s CCA peak systolic velocity: Right 95 cm/s; Left 103 cm/s ICA/CCA ratio: Right 1.2 cm/s; Left 1.2 cm/s IMPRESSION: 1. Narrowing to the bilateral carotid arteries in the less than 50% range. 2. Narrowing to the right external carotid artery likely 50-69% range. <Electronically signed by Lucien Hatch > 08/21/20 [id number]
== END ==
LOC: M RAD 13:57
PROVIDERS: ATTEND Surgery Vascular Surgery
DX: I65.23 Occlusion and stenosis of bilateral carotid arteries (principal)

== ENCOUNTER → 2020-09-25 | Outpatient (REF) | payer OTHER ==
[2020-09-25 11:33] LABS: HEMOGLOBIN A1c 5.4 %
[2020-09-25 11:47] LABS: ALBUMIN 3.8 GM/DL (3.2-5.2); ALT/SGPT 18 U/L (12-78); BILIRUBIN,TOTAL 0.4 MG/DL (0.2-1.0); BLOOD UREA NITROGEN 15 MG/DL (7-18); CALCIUM LEVEL 9.1 MG/DL (8.8-10.2); CARBON DIOXIDE LEVEL 28 MEQ/L (21-32); CHLORIDE LEVEL 110 MEQ/L (98-107); CHOLESTEROL LEVEL 150 MG/DL (<200); CHOLESTEROL RISK RATIO 2.459 (<5); CREATININE FOR GFR 0.79 MG/DL (0.55-1.30); GLOMERULAR FILTRATION RATE > 60.0 (>45); GLUCOSE, FASTING 88 MG/DL (70-100); HDL CHOLESTEROL 61 MG/DL (>40); LDL CHOLESTEROL 75 MG/DL (<100); NON-HDL-C 89 MG/DL; POTASSIUM SERUM 4.4 MEQ/L (3.5-5.1); SODIUM LEVEL 141 MEQ/L (136-145); TOTAL PROTEIN 6.9 GM/DL (6.4-8.2); TRIGLYCERIDES LEVEL 69 MG/DL (<150)
== END ==
LOC: M SFHCCLAY 08:19
PROVIDERS: ATTEND Family Medicine
DX: E78.2 Mixed hyperlipidemia (principal); R73.01 Impaired fasting glucose

== ENCOUNTER → 2021-01-18 | Outpatient (CLI) | payer BC ==
--- NOTE | 2021-01-18 17:03 | REP ---
INDICATION: Z12.31 SCREENING MAMMO. COMPARISON: Multiple TECHNIQUE: Digital screening mammography was carried out bilaterally in the CC and MLO projections using both 2D and 3D modalities and compared to the prior exams. By history, the patient has no complaints of a palpable breast abnormality or other significant breast complaints. FINDINGS: The breasts are unchanged in size and shape. In the right breast centrally seen on both CC and MLO views there is a potential norma density. No other suspicious features are seen in either breast. There is no internal architectural distortion. There are no suspicious calcifications. Benign calcifications are again identified. There is no skin thickening or nipple retraction. The Volpara volumetric breast density pattern is b. IMPRESSION: BIRADS/ACR category 0 mammogram. Potential norma density in the right breast as described above for which diagnostic digital DBT spot compression views are recommended in the CC and MLO projections along with diagnostic ultrasonography if indicated. This patient's Tyrer-Cuzick lifetime breast cancer risk assessment score is 9%. This mammogram was interpreted with the aid of an FDA-approved computer-aided detection system. The patient states she had a clinical breast exam in over a year. The patient letter being requested is M0 RECOMMENDATION: As above <Electronically signed by Austin Goldstein > 01/18/21 0727
== END ==
LOC: M WHC 15:15
PROVIDERS: ATTEND Family Medicine
DX: R92.2 Inconclusive mammogram (principal)

== ENCOUNTER → 2021-01-28 | Outpatient (CLI) | payer BC ==
--- NOTE | 2021-01-28 16:05 | REP ---
INDICATION: R92.8 ABN R BREAST MAMMO-JIM DENSITY; ADDL VIEWS/RIGHT BREAST-JIM DENSITY. COMPARISON: Comparison mammography January 18, 2021 showed a possible nodular jim density in the retroareolar region. Diagnostic imaging was recommended. Comparison is also made with the July 23, 2018 and October 26, 2015 prior mammography. TECHNIQUE: Magnified focal spot-compression CC, MLO, and mL views of the right breast were obtained. 3D tomography is deployed in the mL projection. Targeted right breast sonography is carried out. This mammogram was interpreted with the aid of an FDA-approved computer-aided detection system. FINDINGS: Breast parenchyma is predominantly fat replaced. Diagnostic images confirm the presence of a small a relatively low-density well-circumscribed 6 mm oval-shaped structure in the retroareolar region middle 3rd right breast. This corresponds with the screening mammography. No other significant finding. The Volpara volumetric breast density pattern is a. Targeted ultrasound: Targeted right breast sonographic scanning demonstrates fairly homogeneous for fibroglandular tissue. There is a 6 x 2 x 6 mm oval-shaped cyst well-defined anechoic structure in the retroareolar region of the right breast which is felt to correspond with the mammographic opacity. This has low elastography number. It is consistent with a small benign cyst. IMPRESSION: BIRADS/ACR category 2 benign right breast mammographic and sonographic findings. This patient's Tyrer-Cuzick lifetime breast cancer risk assessment score is 9.0%. RECOMMENDATION: Repeat screening mammography recommended 1 year (for women over 40). The patient letter being requested is M1. <Electronically signed by Koby Kothari > 01/28/21 [id number]
== END ==
LOC: M WHC 14:06
PROVIDERS: ATTEND Family Medicine
DX: R92.8 Other abnormal and inconclusive findings on diagnostic imaging of breast (principal); N60.01 Solitary cyst of right breast
CPT/HCPCS: 76642; 77065; G0279

== ENCOUNTER → 2021-03-29 | Outpatient (REF) | payer OTHER ==
[2021-03-29 13:34] LABS: ALBUMIN 3.5 GM/DL (3.2-5.2); ALT/SGPT 16 U/L (12-78); BILIRUBIN,TOTAL 0.5 MG/DL (0.2-1.0); BLOOD UREA NITROGEN 14 MG/DL (7-18); CALCIUM LEVEL 8.7 MG/DL (8.8-10.2); CARBON DIOXIDE LEVEL 28 MEQ/L (21-32); CHLORIDE LEVEL 109 MEQ/L (98-107); GLOMERULAR FILTRATION RATE > 60.0 (>45); GLUCOSE, FASTING 80 MG/DL (70-100); POTASSIUM SERUM 4.3 MEQ/L (3.5-5.1); SODIUM LEVEL 141 MEQ/L (136-145); TOTAL PROTEIN 6.9 GM/DL (6.4-8.2)
[2021-03-29 14:05] LABS: HEMOGLOBIN A1c 5.4 %
== END ==
LOC: M SFHCCLAY 08:09
PROVIDERS: ATTEND Family Medicine
DX: I10 Essential (primary) hypertension (principal); R73.01 Impaired fasting glucose

== ENCOUNTER → 2021-05-17 | Outpatient (REF) | payer OTHER | LOC: M LAB REF 13:55 | PROVIDERS: ATTEND Physician Assistant | DX: L57.0 Actinic keratosis (principal) ==

== ENCOUNTER → 2021-07-08 | Outpatient (CLI) | payer BC, OTHER | LOC: M RAD 14:23 | PROVIDERS: ATTEND Family Medicine | DX: Z12.2 Encounter for screening for malignant neoplasm of respiratory organs (principal); Z72.0 Tobacco use ==

== ENCOUNTER → 2021-09-30 | Outpatient (REF) | payer OTHER ==
[2021-09-30 11:27] LABS: BASO % 0.3 % (0.0-1.0); EOS # 0.2 10^3/uL (0.0-0.5); EOS % 1.6 % (0.0-3.0); HEMATOCRIT 41.8 % (36.0-47.0); HEMOGLOBIN 13.8 g/dl (12.0-15.5); LYMPH # 2.7 10^3/uL (1.5-5.0); LYMPH % 26.2 % (24.0-44.0); MEAN CORPUSCULAR HEMOGLOBIN 31.2 pg (27.0-33.0); MEAN CORPUSCULAR VOLUME 94.6 fl (80.0-96.0); MONO # 0.5 10^3/uL (0.0-0.8); MONO % 4.7 % (2.0-8.0); NEUTROPHILS # 6.8 10^3/uL (1.5-8.5); NEUTROPHILS % 66.9 % (36.0-66.0); PLATELET COUNT, AUTOMATED 288 10^3/uL (150-450); RED BLOOD COUNT 4.42 10^6/uL (4.00-5.40); WHITE BLOOD COUNT 10.1 10^3/uL (4.0-10.0)
[2021-09-30 12:17] LABS: ALBUMIN 3.8 GM/DL (3.2-5.2); ALT/SGPT 20 U/L (12-78); BILIRUBIN,TOTAL 0.6 MG/DL (0.2-1.0); BLOOD UREA NITROGEN 13 MG/DL (7-18); CALCIUM LEVEL 9.6 MG/DL (8.8-10.2); CARBON DIOXIDE LEVEL 25 MEQ/L (21-32); CHLORIDE LEVEL 114 MEQ/L (98-107); CHOLESTEROL LEVEL 172 MG/DL (<200); CREATININE FOR GFR 0.73 MG/DL (0.55-1.30); GLOMERULAR FILTRATION RATE > 60.0 (>45); GLUCOSE, FASTING 95 MG/DL (70-100); HDL CHOLESTEROL 63 MG/DL (>40); LDL CHOLESTEROL 87 MG/DL (<100); NON-HDL-C 109 MG/DL; POTASSIUM SERUM 4.5 MEQ/L (3.5-5.1); SODIUM LEVEL 145 MEQ/L (136-145); TRIGLYCERIDES LEVEL 110 MG/DL (<150)
[2021-09-30 12:52] LABS: HEMOGLOBIN A1c 5.6 %
== END ==
LOC: M SFHCCLAY 07:48
PROVIDERS: ATTEND Family Medicine
DX: I10 Essential (primary) hypertension (principal); E78.2 Mixed hyperlipidemia; R73.01 Impaired fasting glucose

== ENCOUNTER → 2022-01-11 | Outpatient (CLI) | payer BC, OTHER | LOC: M RAD 09:12 | PROVIDERS: ATTEND Surgery | DX: I73.9 Peripheral vascular disease, unspecified (principal); I65.21 Occlusion and stenosis of right carotid artery ==

== ENCOUNTER → 2022-04-04 | Outpatient (REF) | payer OTHER ==
[2022-04-04 12:50] LABS: HEMOGLOBIN A1c 5.4 %
[2022-04-04 13:00] LABS: ALT/SGPT 17 U/L (12-78); BILIRUBIN,TOTAL 0.5 MG/DL (0.2-1.0); BLOOD UREA NITROGEN 12 MG/DL (7-18); CALCIUM LEVEL 9.5 MG/DL (8.8-10.2); CARBON DIOXIDE LEVEL 29 MEQ/L (21-32); CHLORIDE LEVEL 108 MEQ/L (98-107); CREATININE FOR GFR 0.76 MG/DL (0.55-1.30); GLOMERULAR FILTRATION RATE > 60.0 (>45); GLUCOSE, FASTING 94 MG/DL (70-100); POTASSIUM SERUM 4.3 MEQ/L (3.5-5.1); SODIUM LEVEL 139 MEQ/L (136-145); TOTAL PROTEIN 7.3 GM/DL (6.4-8.2)
== END ==
LOC: M SFHCCLAY 08:38
PROVIDERS: ATTEND Family Medicine
DX: R73.01 Impaired fasting glucose (principal)

== ENCOUNTER → 2022-07-20 | Outpatient (CLI) | payer OTHER ==
[~2022-07-20] MED LIST changes: +CLOP75TA99 PO; -PLAV1TAB2 PO
== END ==
LOC: M LABSMTC 11:39
PROVIDERS: ATTEND Anesthesiology
DX: Z20.828 Contact with and (suspected) exposure to other viral communicable diseases (principal); Z11.52 Encounter for screening for COVID-19

== ENCOUNTER 2022-07-25 10:29 | Day surgery (SDC) | payer OTHER ==
[~2022-07-25] VITALS: Ht 177.8 cm; Wt 90.2 kg
[~2022-07-25 10:29] MED LIST changes: +NS 1,000 ML IV ONE
[2022-07-25] MEDS ORDERED: propofoL 200 MG/20 ML VIAL As Ordered ONE (11:46)
[2022-07-25] MEDS ORDERED: LIDOCAINE 2% 100MG/5ML SDV (FOR ANES.) As Ordered ONE (11:46)
[2022-07-25 12:25] VITALS: BP 116/71
== END 2022-07-25 12:35 | disposition home or self-care (01) ==
LOC: M OPP 10:29
PROVIDERS: ATTEND Internal Medicine Gastroenterology
DX: D12.0 Benign neoplasm of cecum (principal); K64.8 Other hemorrhoids; R19.5 Other fecal abnormalities; Z79.02 Long term (current) use of antithrombotics/antiplatelets; Z79.82 Long term (current) use of aspirin; Z79.899 Other long term (current) drug therapy; I10 Essential (primary) hypertension; I70.245 Atherosclerosis of native arteries of left leg with ulceration of other part of foot; G47.33 Obstructive sleep apnea (adult) (pediatric); F17.200 Nicotine dependence, unspecified, uncomplicated

== ENCOUNTER → 2022-08-31 | Outpatient (CLI) | payer OTHER ==
[~2022-08-31] MED LIST changes: -NS 1,000 ML IV ONE
== END ==
LOC: M RAD 14:38
PROVIDERS: ATTEND Family Medicine
DX: Z12.2 Encounter for screening for malignant neoplasm of respiratory organs (principal); F17.210 Nicotine dependence, cigarettes, uncomplicated

== ENCOUNTER → 2022-10-03 | Outpatient (REF) | payer OTHER ==
[2022-10-03 18:31] LABS: HEMATOCRIT 41.8 % (36.0-47.0); HEMOGLOBIN 13.6 g/dl (12.0-15.5); MEAN CORPUSCULAR HEMOGLOBIN 30.8 pg (27.0-33.0); MEAN CORPUSCULAR HGB CONC 32.5 g/dl (32.0-36.5); MEAN CORPUSCULAR VOLUME 94.6 fl (80.0-96.0); PLATELET COUNT, AUTOMATED 289 10^3/uL (150-450); RED BLOOD COUNT 4.42 10^6/uL (4.00-5.40); WHITE BLOOD COUNT 8.4 10^3/uL (4.0-10.0)
[2022-10-03 19:02] LABS: ALKALINE PHOSPHATASE 62 U/L (46-116); ALT/SGPT 9 U/L (7.0-40); AST/SGOT 17 U/L (<34); BILIRUBIN,TOTAL 0.5 MG/DL (0.3-1.2); BLOOD UREA NITROGEN 13 MG/DL (9-23); CALCIUM LEVEL 9.1 MG/DL (8.3-10.6); CARBON DIOXIDE LEVEL 27 MMOL/L (20-31); CHLORIDE LEVEL 109 MMOL/L (98-107); CHOLESTEROL LEVEL 158 MG/DL (<200); CHOLESTEROL RISK RATIO 2.37 (<5); GLOMERULAR FILTRATION RATE > 60.0 (>45); GLUCOSE, FASTING 70 MG/DL (74-106); HDL CHOLESTEROL 66.5 MG/DL (>40); LDL CHOLESTEROL 71.5 MG/DL (<100); NON-HDL-C 91.5 MG/DL; POTASSIUM SERUM 4.5 MMOL/L (3.5-5.1); SODIUM LEVEL 139 MMOL/L (136-145); TOTAL PROTEIN 6.8 G/DL (5.7-8.2); TRIGLYCERIDES LEVEL 100 MG/DL (<150)
[2022-10-03 19:06] LABS: FREE T4 1.08 NG/DL (0.89-1.76); THYROID STIMULATING HORMONE 1.045 uIU/ML (0.55-4.78); TOTAL T3 101.4 NG/DL (60.0-181.0)
[2022-10-03 20:05] LABS: HEMOGLOBIN A1c 5.2 % (4.0-6.0)
== END ==
LOC: M SFHCCLAY 10:29
PROVIDERS: ATTEND Family Medicine
DX: I10 Essential (primary) hypertension (principal); E78.2 Mixed hyperlipidemia; R73.01 Impaired fasting glucose

== ENCOUNTER → 2022-11-16 | Outpatient (REF) | payer OTHER | LOC: M SFHCCLAY 11:17 | PROVIDERS: ATTEND Nurse Practitioner Family | DX: Z53.9 Procedure and treatment not carried out, unspecified reason (principal) ==

== ENCOUNTER → 2022-11-18 | Outpatient (CLI) | payer OTHER | LOC: M RAD 11:35 | PROVIDERS: ATTEND Family Medicine | DX: Z95.9 Presence of cardiac and vascular implant and graft, unspecified (principal) ==

== ENCOUNTER → 2022-11-18 | Outpatient (CLI) | payer OTHER ==
[2022-11-18 13:57] LABS: BLOOD UREA NITROGEN 12 MG/DL (9-23); CARBON DIOXIDE LEVEL 28 MMOL/L (20-31); CHLORIDE LEVEL 106 MMOL/L (98-107); GLOMERULAR FILTRATION RATE > 60.0 (>45); GLUCOSE, FASTING 76 MG/DL (74-106); POTASSIUM SERUM 4.1 MMOL/L (3.5-5.1); SODIUM LEVEL 138 MMOL/L (136-145)
== END ==
LOC: M LAB 11:37
PROVIDERS: ATTEND Nurse Practitioner Family
DX: R04.2 Hemoptysis (principal)

== ENCOUNTER → 2022-12-01 | Outpatient (REF) | payer OTHER | LOC: M SFHCCLAY 10:49 | PROVIDERS: ATTEND Nurse Practitioner Family | DX: J02.9 Acute pharyngitis, unspecified (principal) ==

== ENCOUNTER → 2022-12-05 | Outpatient (REF) | payer OTHER | LOC: M SFHCDERM 11:35 | PROVIDERS: ATTEND Physician Assistant | DX: D49.2 Neoplasm of unspecified behavior of bone, soft tissue, and skin (principal) ==

== ENCOUNTER → 2023-07-27 | Outpatient (CLI) | payer OTHER | LOC: M WHC 12:53 | PROVIDERS: ATTEND Nurse Practitioner Family | DX: Z12.31 Encounter for screening mammogram for malignant neoplasm of breast (principal) ==

== ENCOUNTER → 2023-07-27 | Outpatient (REF) | payer OTHER | LOC: M SFHCWAGY 17:41 | PROVIDERS: ATTEND Nurse Practitioner Family | DX: Z12.4 Encounter for screening for malignant neoplasm of cervix (principal) | CPT/HCPCS: 87624; G0123 ==

== ENCOUNTER → 2023-08-30 | Outpatient (REF) | payer OTHER ==
[2023-08-30 12:07] LABS: HEMATOCRIT 44.6 % (36.0-47.0); HEMOGLOBIN 14.7 g/dl (12.0-15.5); MEAN CORPUSCULAR HEMOGLOBIN 31.4 pg (27.0-33.0); MEAN CORPUSCULAR VOLUME 95.3 fl (80.0-96.0); PLATELET COUNT, AUTOMATED 279 10^3/uL (150-450); RED BLOOD COUNT 4.68 10^6/uL (4.00-5.40); WHITE BLOOD COUNT 7.4 10^3/uL (4.0-10.0)
[2023-08-30 12:31] LABS: ALKALINE PHOSPHATASE 59 U/L (46-116); ALT/SGPT < 9 U/L (7.0-40); AST/SGOT < 8 U/L (<34); BILIRUBIN,TOTAL 0.7 MG/DL (0.3-1.2); BLOOD UREA NITROGEN 13 MG/DL (9-23); CARBON DIOXIDE LEVEL 28 MMOL/L (20-31); CHLORIDE LEVEL 109 MMOL/L (98-107); CHOLESTEROL LEVEL 141 MG/DL (<200); CHOLESTEROL RISK RATIO 2.67 (<5); CREATININE FOR GFR 0.87 MG/DL (0.55-1.30); GLOMERULAR FILTRATION RATE > 60.0 (>45); GLUCOSE, FASTING 88 MG/DL (74-106); HDL CHOLESTEROL 52.7 MG/DL (>40); LDL CHOLESTEROL 67.9 MG/DL (<100); NON-HDL-C 88.3 MG/DL; POTASSIUM SERUM 4.7 MMOL/L (3.5-5.1); SODIUM LEVEL 138 MMOL/L (136-145); TOTAL PROTEIN 6.9 G/DL (5.7-8.2); TRIGLYCERIDES LEVEL 102 MG/DL (<150)
[2023-08-30 12:34] LABS: FREE T4 1.15 NG/DL (0.89-1.76); THYROID STIMULATING HORMONE 1.449 uIU/ML (0.55-4.78)
[2023-08-30 12:53] LABS: HEMOGLOBIN A1c 5.6 % (4.0-6.0)
== END ==
LOC: M SFHCCLAY 08:53
PROVIDERS: ATTEND Family Medicine
DX: E78.2 Mixed hyperlipidemia (principal); I10 Essential (primary) hypertension; R73.01 Impaired fasting glucose

== ENCOUNTER → 2023-11-10 | Outpatient (CLI) | payer OTHER ==
[~2023-11-10] MED LIST changes: -ROSU10TA6 PO; +ROSU10TA61 PO
== END ==
LOC: M RAD 09:35
PROVIDERS: ATTEND Family Medicine
DX: F17.210 Nicotine dependence, cigarettes, uncomplicated (principal)

== ENCOUNTER → 2024-02-16 | Outpatient (CLI) | payer OTHER | LOC: M RAD 12:06 | PROVIDERS: ATTEND Surgery | DX: I73.9 Peripheral vascular disease, unspecified (principal); I65.21 Occlusion and stenosis of right carotid artery ==

== ENCOUNTER → 2024-09-04 | Outpatient (REF) | payer OTHER ==
[2024-09-04 13:41] LABS: HEMATOCRIT 44.2 % (36.0-47.0); HEMOGLOBIN 14.5 g/dl (12.0-15.5); MEAN CORPUSCULAR HEMOGLOBIN 31.7 pg (27.0-33.0); MEAN CORPUSCULAR HGB CONC 32.8 g/dl (32.0-36.5); MEAN CORPUSCULAR VOLUME 96.5 fl (80.0-96.0); PLATELET COUNT, AUTOMATED 277 10^3/uL (150-450); RED BLOOD COUNT 4.58 10^6/uL (4.00-5.40); WHITE BLOOD COUNT 8.8 10^3/uL (4.0-10.0)
[2024-09-04 14:28] LABS: HEMOGLOBIN A1c 5.1 % (4.0-6.0)
[2024-09-04 14:49] LABS: ALBUMIN 3.9 G/DL (3.2-5.2); ALKALINE PHOSPHATASE 62 U/L (35-104); ALT/SGPT 14 U/L (7.0-40); AST/SGOT 16 U/L (<34); BILIRUBIN,TOTAL 0.6 MG/DL (0.3-1.2); BLOOD UREA NITROGEN 13 MG/DL (9-23); CALCIUM LEVEL 9.9 MG/DL (8.3-10.6); CARBON DIOXIDE LEVEL 29 MMOL/L (20-31); CHLORIDE LEVEL 108 MMOL/L (98-107); CHOLESTEROL LEVEL 181 MG/DL (<200); CREATININE FOR GFR 0.77 MG/DL (0.55-1.30); GLOMERULAR FILTRATION RATE > 60.0 (>45); GLUCOSE, FASTING 93 MG/DL (74-106); HDL CHOLESTEROL 75.4 MG/DL (>40); LDL CHOLESTEROL 90.2 MG/DL (<100); NON-HDL-C 105.6 MG/DL; POTASSIUM SERUM 4.7 MMOL/L (3.5-5.1); SODIUM LEVEL 142 MMOL/L (136-145); TOTAL PROTEIN 7.3 G/DL (5.7-8.2); TRIGLYCERIDES LEVEL 77 MG/DL (<150)
== END ==
LOC: M SFHCCLAY 08:50
PROVIDERS: ATTEND Family Medicine
DX: I10 Essential (primary) hypertension (principal); E78.2 Mixed hyperlipidemia; R73.01 Impaired fasting glucose